=== PATIENT | female | born 1945 | race African-American/Black ===

== ENCOUNTER 2024-04-07 21:55 | Inpatient (IN) | payer MEDICARE, MEDICAID ==
[~2024-04-07] VITALS: Ht 160 cm; Wt 60.8 kg
[2024-04-07] MEDS: SODIUM CHLORIDE 0.9% 1,000 ML IV ONE (23:36)
[2024-04-08 00:01] LABS: BASOPHILS % 0.4 % (0.0-2.0); EOSINOPHILS % 1.6 % (0.0-5.0); HEMATOCRIT. 44.1 % (36.0-48.0); HEMOGLOBIN. 14.5 g/dL (12.0-16.0); MEAN CORPUSCULAR HEMOGLOBIN 31.4 pg (28.0-32.0); MEAN CORPUSCULAR HGB CONC 32.7 g/dL (31.0-37.0); MEAN CORPUSCULAR VOLUME 95.8 fL (81.0-99.0); MONOCYTES % 11.7 % (2.0-8.0); NEUTROPHILS % 37.3 % (40.0-76.0); PLATELET 147 x1000/uL (130-400); RED BLOOD CELL COUNT 4.61 mill/uL (4.2-5.4); RED CELL DISTRIBUTION WIDTH 14.8 % (11.6-14.6); WHITE BLOOD COUNT 6.8 x1000/uL (4.5-11.0)
[2024-04-08 00:08] LABS: CHLORIDE 109 mEq/L (98-107); SODIUM 141 mEq/L (136-145)
[2024-04-08 00:09] LABS: CALCIUM 10.3 mg/dL (8.7-10.4); CARBON DIOXIDE 27 mEq/L (21-32)
[2024-04-08 00:10] LABS: PROTHROMBIN TIME 11.2 sec (9.6-11.0)
[2024-04-08 00:14] LABS: CREATININE 0.9 mg/dL (0.6-1.0); GLUCOSE 88 mg/dL (70-105); UREA NITROGEN BLOOD 14 mg/dL (9-23)
[2024-04-08 00:15] LABS: TROPONIN I HIGH SENSITIVITY 13 ng/L (3.0-34)
[2024-04-08 00:58] LABS: CLARITY URINE CLEAR (CLEAR); COLOR URINE YELLOW (YELLOW); GLUCOSE URINE NEGATIVE (NEGATIVE); KETONES URINE NEGATIVE (NEGATIVE); LEUKOCYTE ESTERASE URINE NEGATIVE (NEGATIVE); NITRITE URINE NEGATIVE (NEGATIVE); OCCULT BLOOD URINE NEGATIVE (NEGATIVE); PROTEIN URINE NEGATIVE (NEGATIVE); SPECIFIC GRAVITY URINE 1.007 (1.005-1.030); UROBILINOGEN URINE 0.2 E.U./dL (0.2-1.0)
[2024-04-08] MEDS: HYDRALAZINE 20MG/ML VIAL IV NR (01:44)
[2024-04-08 03:23] LABS: TROPONIN I HIGH SENSITIVITY 22 ng/L (3.0-34)
[2024-04-08 03:56] VITALS: BP 172/64; PULSE 62; RESP 18; TEMP 36.72516; O2SAT 98
[2024-04-08] MEDS ORDERED: AMLO-138 PO (05:01)
[2024-04-08 05:09] VITALS: BP 167/71; PULSE 65; RESP 18; TEMP 36.696
[2024-04-08] MEDS: ENOXAPARIN 40MG/0.4ML SYR SUBCUT SCH (08:47)
[2024-04-08 09:38] LABS: CHLORIDE 112 mEq/L (98-107); POTASSIUM 3.6 mEq/L (3.5-5.1); SODIUM 143 mEq/L (136-145)
[2024-04-08 09:39] LABS: CARBON DIOXIDE 21 mEq/L (21-32)
[2024-04-08 09:40] LABS: CALCIUM 9.9 mg/dL (8.7-10.4)
[2024-04-08 09:44] LABS: CREATININE 0.7 mg/dL (0.6-1.0); GLUCOSE 79 mg/dL (70-105); UREA NITROGEN BLOOD 13 mg/dL (9-23)
[2024-04-08] MEDS ORDERED: ACETAMINOPHEN 325MG TABLET PO PRN (11:45)
[2024-04-08] MEDS ORDERED: LEVO88TA2 PO (12:02)
[2024-04-08] MEDS ORDERED: PENT400T16 PO (12:02)
[2024-04-08] MEDS ORDERED: DONE10TA43 PO (12:03)
[2024-04-08] MEDS ORDERED: DULO30CA52 PO (12:03)
[2024-04-08] MEDS ORDERED: ENOXAPARIN 30MG/0.3ML SYR SUBCUT NR (13:00)
[2024-04-08] MEDS: ENOXAPARIN 60MG/0.6ML SYR SUBCUT NR (14:25)
[2024-04-08] MEDS: LORAZEPAM 2MG/ML INJ IV NR (19:05)
[2024-04-08] MEDS: ENOXAPARIN 60MG/0.6ML SYR SUBCUT SCH (22:09)
[2024-04-08 23:15] VITALS: BP 137/54; PULSE 66; RESP 18; TEMP 36.5292
[2024-04-09] VITALS: BP 137/54; PULSE 66; RESP 18; TEMP 36.50292; O2SAT 97
[2024-04-09 04:02] VITALS: BP 149/55; PULSE 62; RESP 19; TEMP 36.6696; O2SAT 98
[2024-04-09 06:51] LABS: CHLORIDE 110 mEq/L (98-107); POTASSIUM 3.3 mEq/L (3.5-5.1); SODIUM 143 mEq/L (136-145)
[2024-04-09 06:52] LABS: CALCIUM 10.4 mg/dL (8.7-10.4); CARBON DIOXIDE 26 mEq/L (21-32)
[2024-04-09 06:57] LABS: CREATININE 0.9 mg/dL (0.6-1.0); GLUCOSE 85 mg/dL (70-105); UREA NITROGEN BLOOD 21 mg/dL (9-23)
[2024-04-09] MEDS ORDERED: BENAZEPRIL 10MG TABLET PO SCH (09:00)
[2024-04-09 09:01] VITALS: BP 174/60; PULSE 54; RESP 20; TEMP 36.61404; O2SAT 99
[2024-04-09] MEDS: DONEPEZIL HCL 10MG TABLET PO SCH (09:50)
[2024-04-09] MEDS: DULOXETINE HCL 30MG DR CAPSULE PO SCH (09:51)
[2024-04-09] MEDS: AMLODIPINE 10MG TABLET PO SCH (09:51)
[2024-04-09] MEDS: LISINOPRIL 40MG TABLET PO SCH (09:51)
[2024-04-09 11:56] VITALS: BP 144/61; PULSE 64; RESP 20; TEMP 36.44736; O2SAT 97
[2024-04-09] MEDS: ASPIRIN 81MG TABLET PO SCH (13:47)
[2024-04-09 16:11] VITALS: BP 159/60; PULSE 54; RESP 20; TEMP 36.61404; O2SAT 97
[2024-04-09 20:00] VITALS: BP 163/73; PULSE 57; RESP 18; TEMP 36.3918; O2SAT 98
[2024-04-09] MEDS: ATORVASTATIN CALCIUM 40MG TABLET PO SCH (21:21)
[2024-04-10] VITALS: BP 113/56; PULSE 60; RESP 18; TEMP 36.55848; O2SAT 98
[2024-04-10 04:00] VITALS: BP 168/68; PULSE 60; RESP 18; TEMP 36.3918; O2SAT 98
[2024-04-10 08:00] VITALS: BP 167/70; PULSE 54; RESP 18; TEMP 36.72516; O2SAT 99
[2024-04-10 12:00] VITALS: BP 128/78; PULSE 58; RESP 18; TEMP 36.61404; O2SAT 99
[2024-04-10] MEDS ORDERED: ASPI-1160 PO (15:46)
[2024-04-10] MEDS ORDERED: LIP40 PO (15:46)
[2024-04-10] MEDS ORDERED: APIX5TAB MT (15:46)
[2024-04-10 16:00] VITALS: BP 125/80; PULSE 60; RESP 18; TEMP 36.6696; TEMP 36.66960; O2SAT 99
[2024-04-10 16:29] VITALS: BP 125/76; PULSE 60; TEMP 98; O2SAT 99
== END 2024-04-10 18:20 | disposition home or self-care (01) | DRG 682 ==
LOC: ER 21:55 → EDBEDREQ 04-08 00:07 → 5WST 04-08 04:27 → 7WST 04-08 23:41
PROVIDERS: ADMIT Internal Medicine; ATTEND Internal Medicine
PROC: 4A00X4Z Measurement of Central Nervous Electrical Activity, External Approach (ICD-10-PCS; principal; 2024-04-10)
DX: N17.9 Acute kidney failure, unspecified (principal); G93.41 Metabolic encephalopathy; M33.20 Polymyositis, organ involvement unspecified; I48.0 Paroxysmal atrial fibrillation; I10 Essential (primary) hypertension; F03.90 Unspecified dementia, unspecified severity, without behavioral disturbance, psychotic disturbance, mood disturbance, and anxiety; J44.9 Chronic obstructive pulmonary disease, unspecified; Z88.0 Allergy status to penicillin; Z88.2 Allergy status to sulfonamides
CPT/HCPCS: 36415; 70551; 71045; 80048; 80061; 81003; 83036; 83605; 84443; 84484; 85025; 93005; 93306; 95816; 99285; J0360; J1650; J2060; J7030